=== PATIENT | male | born 1950 | race Caucasian/White ===

== ENCOUNTER → 2016-04-03 | Outpatient (CLI) | payer OTHER | LOC: BHFA 14:00 | PROVIDERS: ATTEND Internal Medicine Cardiovascular Disease | DX: I63.9 Cerebral infarction, unspecified (principal) ==

== ENCOUNTER → 2016-04-13 | Outpatient (CLI) | payer OTHER | LOC: BHFA 13:00 | PROVIDERS: ATTEND Internal Medicine Cardiovascular Disease | DX: I50.9 Heart failure, unspecified (principal); I50.21 Acute systolic (congestive) heart failure; G47.30 Sleep apnea, unspecified; G47.31 Primary central sleep apnea; N18.9 Chronic kidney disease, unspecified | CPT/HCPCS: 78452; 93017; A9500; J2785; 84481-90 ==

== ENCOUNTER 2016-04-20 07:32 | Observation (INO) | payer OTHER ==
[2016-04-20] MEDS ORDERED: diphenhydrAMINE 25 MG CAP PO ONE ×2 (07:40→08:28)
[2016-04-20] MEDS ORDERED: FAMOTIDINE 20 MG TAB PO ONE (07:40)
[2016-04-20] MEDS ORDERED: DIAZEPAM 5 MG TAB PO ONE (07:40)
[2016-04-20] MEDS ORDERED: NS 1,000 ML IV ONE (07:40)
[2016-04-20] MEDS ORDERED: ASPIRIN EC 325 MG TAB PO ONE ×2 (07:40→08:28)
--- NOTE | 2016-04-20 08:25 | CPEKG ---
Heart Rate: 75 RR Interval: 800 P-R Interval: 200 QRSD Interval: 116 QT Interval: 388 QTC Interval: 434 P [place]: 63 QRS [place]: -2 T Wave [place]: 190 EKG Severity - ABNORMAL ECG - EKG Impression: SINUS RHYTHM BORDERLINE FIRST DEGREE AV BLOCK EKG Impression: NONSPECIFIC INTRAVENTRICULAR CONDUCTION DELAY EKG Impression: BORDERLINE ST DEPRESSION, ANTEROLATERAL LEADS Electronically Signed By: Horacio Ferrara 20-Apr-2016 19:24:40
[2016-04-20] MEDS ORDERED: FAMOTIDINE 20 MG TAB ONE (08:28)
[2016-04-20] MEDS ORDERED: DIAZEPAM 5 MG TAB ONE (08:28)
[2016-04-20 08:47] LABS: % IMMATURE GRANULYOCYTES 0.5 % (0.0-1.1); ABSOLUTE IMMATURE GRANULOCYTES 0.04 10^3/uL (0.00-0.10); ADD DIFF? NO; ADD MORPH? NO; ADD SCAN? NO; ATYPICAL LYMPHOCYTE FLAG 0 (0-99); FRAGMENT RBC FLAG 0 (0-99); HEMATOCRIT 52.8 % (40.0-51.0); HEMOGLOBIN 17.8 g/dL (13.7-17.5); LEFT SHIFT FLG 0 (0-99); LIPEMIA HEMOLYSIS FLAG 80 (0-99); MEAN CELL HEMOGLOBIN 32.5 pg (27.9-34.1); MEAN CELL HEMOGLOBIN CONCENTR. 33.7 g/dL (32.4-36.7); MEAN CELL VOLUME 96.5 fL (81.5-99.8); MEAN PLATELET VOLUME 9.9 fL (8.7-11.7); PLATELET CLUMPS FLAG 10 (0-99); PLATELET COUNT 273 10^3/uL (150-400); RED BLOOD CELL COUNT 5.47 10^6/uL (4.40-6.38); RED CELL DISTRIBUTION WIDTH 13.6 % (11.5-15.2)
[2016-04-20] MEDS ORDERED: fentaNYL 100 MCG/2 ML INJ ONE (08:55)
[2016-04-20] MEDS ORDERED: LIDOCAINE 1% 30 ML SDV ONE (08:55)
[2016-04-20] MEDS ORDERED: IOPAMIDOL (ISOVUE-370) 150 ML BTL IV ONE (08:56)
[2016-04-20] MEDS ORDERED: MIDAZOLAM 2 MG/2 ML VIAL ONE ×2 (08:56)
[2016-04-20 09:07] LABS: ANION GAP 11 mEq/L (8-16); CALCIUM 8.9 mg/dL (8.5-10.4); CARBON DIOXIDE 21 mEq/l (22-31); CHLORIDE 114 mEq/L (97-110); CHOLESTEROL 192 mg/dL (140-220); CHOLESTEROL/HDL RATIO 4.68 RATIO (1.00-4.97); CREATININE 1.5 mg/dL (0.7-1.3); GLOMERULAR FILTRATION RATE 47; GLUCOSE 75 mg/dL (70-100); HIGH DENSITY LIPOPROTEIN 41 mg/dL (40-65); LDL/HDL RATIO 3.07 RATIO (1.00-3.64); LOW DENSITY LIPOPROTEIN 126 mg/dL (80-100); MAGNESIUM 2.1 mg/dL (1.6-2.3); NON-HIGH DENSITY LIPOPROTEIN 151 mg/dL (90-129); POTASSIUM 4.4 mEq/L (3.5-5.2); SODIUM 146 mEq/L (134-144); TRIGLYCERIDE 126 mg/dL (40-150); VERY LOW DENSITY LIPOPROTEINS 25 mg/dL (8-25)
[2016-04-20 09:10] LABS: INR 1.06 (0.83-1.16); PROTIME(PATIENT) 13.7 SEC (12.0-15.0)
[2016-04-20] MEDS ORDERED: OXYCODONE/APAP 5/325 TAB PO PRN (12:21)
[2016-04-20] MEDS ORDERED: NITROGLYCERIN 0.4 MG BTL SL PRN (12:21)
[2016-04-20] MEDS ORDERED: ONDANSETRON 4 MG/2 ML VIAL IVP PRN (12:21)
[2016-04-20] MEDS ORDERED: ATROPINE SULFATE 1 MG/10 ML SYR IVP PRN (12:21)
[2016-04-20] MEDS ORDERED: HYDROCODONE/APAP 5/325 TAB PO PRN (12:21)
--- NOTE | 2016-04-20 14:56 | DX ---
Portable Chest 14:27 p.m. History: Preoperative open heart surgery evaluation Comparison: None Findings: Lungs clear. Heart normal. No mass, adenopathy or pleural effusion. There is mild tortuosit y of the descending thoracic aorta. EKG lead and oxygen tubing overlies the chest. Impression: Normal. No contraindication to open heart surgery identified.
--- NOTE | 2016-04-20 15:39 | US ---
Bilateral Duplex Carotid Sonography Clinical Indications: Preoperative open heart surgery, coronary artery disease, atherosclerotic dise ase Technique: The cervical portions of the carotid and vertebral arteries were imaged and interrogated by color and pulsed Doppler. Spectral analysis was performed. Findings: Right Carotid: The common carotid artery, bifurcation, and origin of the internal and external carot id artery are well imaged. There is a 30% diameter smooth noncalcified stenosis by NASCET criteria as sociated with the right carotid bifurcation. Doppler velocity estimates and color Doppler spectra ar e normal. Peak ICA systolic velocity = 59 cm/sec and diastolic velocity = 27 cm/sec. No evidence of flow-limiting stenosis. No focal ulceration is identified. Left Carotid: The common carotid artery, bifurcation, and origin of the internal and external caroti d artery are well imaged. There is a smooth 0% stenosis by NASCET criteria, partially calcified plaqu e in the carotid bifurcation. Doppler velocity estimates and color Doppler spectra are normal. Peak ICA systolic velocity = 50 to cm/sec and peak diastolic velocity = 22 cm/sec. No evidence of flow-peterson iting stenosis. No focal ulceration is identified.. Vertebral Arteries: Antegrade flow is shown by pulsed Doppler of each vertebral artery. Impression: No evidence of flow-limiting carotid stenosis. Measurement of carotid stenosis is based on velocity parameters that correlate the residual internal carotid diameter with [place] Symptomatic Carotid Endarterectomy Trial (NASCET) based stenosis levels.
[2016-04-20] MEDS ORDERED: TEMAZEPAM 15 MG CAP PO PRN (15:53)
[2016-04-20] MEDS ORDERED: TRIAMCINOLONE 0.5% 15GM CREAM TP PRN (15:53)
[2016-04-20] MEDS ORDERED: CYCLOBENZAPRINE 10 MG TAB PO PRN (15:53)
[2016-04-20] MEDS: CARVEDILOL 3.125 MG TAB PO SCH ×2 (16:40→19:29)
--- NOTE | 2016-04-20 17:50 | GCON ---
[f rep st] CONSULTATION PATIENT NAME: Jennifer Barrett DATE OF : REFERRING PHYSICIAN: The patient was seen at request of Dr. Coello with the patient's permission. IMPRESSION: 1. 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 2. History of asthma. 3. History of central sleep apnea. 4. Migraine cephalgia. RECOMMENDATIONS: This gentleman should undergo coronary artery revascularization. He was offered syed rgery in the morning given his poor LV function and coronary anatomy. However, the patient states th at is not convenient for him. I advised him he is at risk for worsening heart failure and sudden demond th. His overall risk for surgery approaches of 6% to 7%. However, medical therapy is an option but the lesser for long-term survival. The patient has had worsening dyspnea on exertion, shortness of b reath. He was noted on evaluation by Dr. Coello to have severe LV dysfunction with ejection fraction of approximately 23% on echocardiogram. He has mild MR and TR. PA pressures were relatively normal, based on echo. He did have a right heart catheterization, the results are not currently available. He had a Lexiscan which showed some reversible anterior lateral and inferior ischemia. He has no kn own history of myocardial infarction or cardiac injury. PREVIOUS MEDICAL HISTORY: As stated. Surgeries include patellar fracture. MEDICATIONS: Acetaminophen, acetazolamide, allopurinol, Breo Ellipta inhaler, Coreg 6.25 b.i.d., cyc lobenzaprine every other day for sleeping, levothyroxine 75 mcg, lisinopril 10 mg, and temazepam 30 m g a day. ALLERGIES: To penicillin. FAMILY HISTORY: Noncontributory. SOCIAL HISTORY: He lives alone. Does not have a car. He has never been a heavy drinker and does no t currently drink, and he has never smoked. He is currently unemployed. REVIEW OF SYSTEMS: CONSTITUTIONAL: At the present time, he is comfortable lying in bed. He has no significant complaints at present. He just underwent diagnostic left heart catheterization. CARDIAC /RESPIRATORY: He does have occasional chest pain, dyspnea on exertion and some claudication. He has had some shortness of breath with any ambulation or any activity. He denies PND or orthopnea. GI: Negative. MUSCULOSKELETAL: Negative. HEME: He has a history of polycythemia, felt to be due to a ltitude and his lung disease. PHYSICAL EXAMINATION: GENERAL APPEARANCE: A slender middle-aged man lying supine in bed. No appare nt distress. Currently post cath. Awake and alert. HEENT: Poor dentition. NECK: Without bruits. HEART: Rate is regular without murmur. LUNGS: Clear. ABDOMEN: Scaphoid and nontender. No palp able mass or organomegaly. Aorta is not palpable. PERIPHERAL VASCULAR: Femoral pulses are 2+. Ped al pulses are 2+ and symmetrical. No peripheral edema. Please see echo for details, as well as cath. /[id number]/MODL
[2016-04-20] MEDS ORDERED: CARVEDILOL 6.25 MG TAB PO SCH (18:00)
[2016-04-20] MEDS: acetaZOLAMIDE 250 MG TAB PO SCH (18:15)
--- NOTE | 2016-04-20 19:35 | CPIP ---
[f rep st] INVASIVE CARDIAC PROCEDURE DATE OF PROCEDURE: 04/20/2016 PROCEDURE: 1. Coronary angiography. 2. Left ventricular end-diastolic pressure. 3. Right heart catheterization. INDICATION: 1. Cardiomyopathy. 2. High risk stress test with multiple zones of ischemia. 3. Class III dyspnea on exertion concerning for anginal equivalent. ACCESS: The patient was prepped and draped in sterile fashion. 1% lidocaine was used to anesthetize the right inguinal region. A 6-Colombian introducer sheath was placed selectively into the right commo n femoral artery via modified Seldinger technique. A 7-Colombian introducer sheath was placed selective ly into the left common femoral vein via modified Seldinger technique. CORONARY ANGIOGRAPHY: A 6-Colombian JL4 was advanced to the left main coronary artery and images obtain ed. The left main coronary artery bifurcated into an LAD and circumflex coronary arteries. The left main coronary artery had a distal 40-50% stenosis present. The left anterior descending coronary ar shadia is diffusely diseased. In the mid-vessel, there was a single discrete 70% stenosis present and in the distal vessel there was a single discrete 75% stenosis present. The first diagonal artery is a ztssp-dq-[id number]-size vessel. The first diagonal artery had a proximal 99% stenosis present. The circumflex coronary artery is nondominant. The circumflex coronary artery had an ostial 75% stenosi s present. In the mid-vessel, there was a long segmental 50-60% stenosis present. A 6-Colombian JR4 wa s advanced to the right coronary artery and images obtained. The right coronary artery is dominant. The right coronary artery is large. The right coronary artery was occluded in the proximal segment. The distal vessels filled via collaterals from the left. Left ventricular end-diastolic pressure: A 6-Colombian pigtail catheter was advanced into the left ventricle and left ventricular end-diastolic pressure was obtained. The left ventricle end-diastolic pressure was 32 mmHg. Left ventriculography was not performed in an effort to spare contrast in this patient with renal insufficiency. Right he art catheterization: Right heart catheter was advanced to the right atrium and pressure obtained. T he right atrial pressure was 7 mmHg. The catheter was then advanced to the right ventricle and press ure obtained. The right ventricular pressure was 38/7 mmHg. The catheter was then advanced to the p ulmonary artery pressure obtained. The pulmonary artery pressure was 37/16 mmHg with a mean pulmonar y artery pressure 26 mmHg. The pulmonary capillary wedge pressure was 20 mmHg. The transpulmonary g radient was 6. Cardiac output: 4.92. Cardiac index: 2.79. COMPLICATIONS: None. CONCLUSIONS: 1. Three-vessel coronary artery disease. 2. Mild pulmonary hypertension with a mean pulmonary artery pressure of 26 mmHg. The transpulmonary gradient of 6 mmHg, indicating the pulmonary hypertension is secondary to left ventricular dysfuncti on. 3. Elevated pulmonary capillary wedge pressure: 20 mmHg. 4. The plan is for surgical evaluation. /[id number]/MODL
[2016-04-21] MEDS ORDERED: LEVOTHYROXINE 75 MCG TAB PO SCH (06:00)
[2016-04-21 08:12] VITALS: BP 95/62; PULSE 77; RESP 17; TEMP 97.6; O2SAT 98
[2016-04-21] MEDS: CARVEDILOL 3.125 MG TAB PO SCH (08:49)
[2016-04-21] MEDS: acetaZOLAMIDE 250 MG TAB PO SCH (08:52)
[2016-04-21] MEDS ORDERED: LISINOPRIL 10 MG TAB PO SCH (09:00)
[2016-04-21] MEDS ORDERED: ALLOPURINOL 100 MG TAB PO SCH (09:00)
[2016-04-21] MEDS ORDERED: Fluticasone/Vilanterol [Breo Ellipta 100-25 Mcg Inh] 1 PUFFS IH SCH (09:00)
[2016-04-21] MEDS ORDERED: ASPIRIN 81 MG CHEWABLE TAB PO SCH (10:00)
[2016-04-21] MEDS ORDERED: ATORVASTATIN CALCIUM 10 MG TAB PO SCH (10:00)
--- NOTE | 2016-04-21 12:23 | GDS ---
[f rep st] DISCHARGE SUMMARY DISCHARGE DIAGNOSES: 1. Systolic congestive heart failure with an ejection fraction of 23% seen on recent echo on 04/03/2016. 2. Chronic renal insufficiency with a serum creatinine in the 1.6 range. 3. History of central sleep apnea. 4. History of chronic migraines. 5. History of polycythemia. 6. Abnormal nuclear stress test from 04/13/2016, which showed very large reversible anterolateral and inferior ischemia. PROCEDURES: 1. 04/20/2016 left heart catheterization which showed left main with 40% to 50 % stenosis, mid vessel LAD single discrete 70% stenosis and diffuse disease as well throughout the vessel. Distal vessel has 75% stenosis. First diagonal shows 99% proximal stenosis. Circumflex has ostial 75% stenosis. In the mid vessel, there is 50% to 60% long segmental stenosis. Right coronary artery was occluded at the proximal segment and was filled with collateral from the left. LVEDP was elevated at 32 mm Hg. 2. Right heart catheterization with RA pressure of 7, RV pressure of 38/7, pulmonary artery pressure of 37/16 with a mean pulmonary artery pressure of 26, pulmonary capillary wedge pressure of 20, transpulmonary gradient of 6, cardiac output of 4.92, cardiac index of 2.79. PHYSICIANS: Dr. Plunkett. Outpatient heart failure erp business analyst is Dr. Coello. CONSULTATIONS: Dr. Polk. BRIEF HISTORY: Please see dictated H and P for complete details. In brief, the patient is a 65-year-old male with chronic migraines, polycythemia, and chronic renal insufficiency, who was referred to Dr. Coello due to echo showing EF of 23% with a reduced RV ejection fraction, mild MR and TR. He proceeded to Lexiscan stress testing, which showed a very large reversible defect involving the anterolateral and inferior nolasco. EF was 37%. He had dyspnea as well as some vague chest pain. He proceeded to left heart catheterization, with results described above. He has been offered coronary artery bypass grafting. HOSPITAL COURSE: 1. Severe CAD. He has three-vessel CAD and has been offered coronary artery bypass grafting. He would to like to defer surgery until after the winter season due to his need to use a support services rep. This will need to be discussed with Dr. Coello in the outpatient setting. He was at this point scheduled to have surgery on but surgery date is currently on hold. 2. Dyslipidemia. His LDL on day of left heart catheterization was 126. He is being started on atorvastatin 110 mg daily. He will need followup labs in 6 weeks. 3. Chronic kidney disease. His creatinine was 1.5 on day of left heart catheterization. 4. Systolic CHF. He has NYHA functional class 3 symptoms. He appears euvolemic and has no crackles on lung exam. RESULTS PENDING: None. DISCHARGE PHYSICAL EXAM: VITAL SIGNS: Blood pressure 95/62, heart rate 77, respirations 17, O2 saturation 98% on room air. GENERAL: He is a pleasant male in no apparent distress. EYES: PERRL. HEART: Regular rate and rhythm. LUNGS: Clear. ABDOMEN: Right groin site without erythema or bruit auscultated. EXTREMITIES: He has 2+ PT and DP pulses bilaterally. ACTIVITY: Groin precautions were reviewed. DISCHARGE MEDICATIONS: Please see medication reconciliation for complete details. His new medications are aspirin 81 mg p.o. daily and atorvastatin 10 mg p.o. daily. He is being continued on all his home medications, which include triamcinolone, Flexeril, Tylenol No. 3, temazepam, carvedilol, lisinopril, levothyroxine, acetazolamide, allopurinol, and Breo Ellipta. FOLLOWUP INSTRUCTIONS: 1. Follow up with Dr. Polk in the outpatient setting. 2. Follow up with Dr. Coello in 1-2 weeks' time. 3. Follow groin instructions as provided on discharge. /[id number]/MODL MTDD
== END 2016-04-21 12:15 | disposition home or self-care (01) ==
LOC: FCATH 07:32 → F2W 13:02
PROVIDERS: ADMIT Internal Medicine Cardiovascular Disease; ATTEND Internal Medicine Cardiovascular Disease
PROC: 4A023N8 Measurement of Cardiac Sampling and Pressure, Bilateral, Percutaneous Approach (ICD-10-PCS; principal; 2016-04-20)
PROC: B2151ZZ Fluoroscopy of Left Heart using Low Osmolar Contrast (ICD-10-PCS; 2016-04-20)
PROC: B2111ZZ Fluoroscopy of Multiple Coronary Arteries using Low Osmolar Contrast (ICD-10-PCS; 2016-04-20)
DX: I50.21 Acute systolic (congestive) heart failure (principal); I25.5 Ischemic cardiomyopathy; I25.10 Atherosclerotic heart disease of native coronary artery without angina pectoris; I27.2 Other secondary pulmonary hypertension; R53.83 Other fatigue; R06.02 Shortness of breath; N18.9 Chronic kidney disease, unspecified; G47.31 Primary central sleep apnea; G43.909 Migraine, unspecified, not intractable, without status migrainosus; D75.1 Secondary polycythemia; R94.39 Abnormal result of other cardiovascular function study; E78.5 Hyperlipidemia, unspecified; E03.9 Hypothyroidism, unspecified; M10.9 Gout, unspecified; J45.909 Unspecified asthma, uncomplicated; Z87.442 Personal history of urinary calculi; Z88.0 Allergy status to penicillin
CPT/HCPCS: 71010; 93005; 93458; 93880; J1644; J2250; J3010; Q9967

== ENCOUNTER 2016-04-26 07:15 | Inpatient (IN) | payer OTHER ==
[2016-05-22 12:13] LABS: % IMMATURE GRANULYOCYTES 0.5 % (0.0-1.1); ABSOLUTE IMMATURE GRANULOCYTES 0.05 10^3/uL (0.00-0.10); ADD DIFF? NO; ADD MORPH? NO; ADD SCAN? NO; ATYPICAL LYMPHOCYTE FLAG 0 (0-99); FRAGMENT RBC FLAG 0 (0-99); HEMATOCRIT 48.4 % (40.0-51.0); LEFT SHIFT FLG 0 (0-99); LIPEMIA HEMOLYSIS FLAG 80 (0-99); MEAN CELL HEMOGLOBIN 32.7 pg (27.9-34.1); MEAN CELL HEMOGLOBIN CONCENTR. 33.1 g/dL (32.4-36.7); MEAN CELL VOLUME 98.8 fL (81.5-99.8); MEAN PLATELET VOLUME 9.7 fL (8.7-11.7); PLATELET CLUMPS FLAG 0 (0-99); PLATELET COUNT 242 10^3/uL (150-400); RED CELL DISTRIBUTION WIDTH 14.4 % (11.5-15.2)
[2016-05-22 12:27] LABS: ANION GAP 12 mEq/L (8-16); CALCIUM 9.4 mg/dL (8.5-10.4); CARBON DIOXIDE 19 mEq/l (22-31); CHLORIDE 114 mEq/L (97-110); CREATININE 1.5 mg/dL (0.7-1.3); GLOMERULAR FILTRATION RATE 47; GLUCOSE 81 mg/dL (70-100); POTASSIUM 4.1 mEq/L (3.5-5.2); SODIUM 145 mEq/L (134-144)
[2016-05-22 13:57] LABS: HEMOGLOBIN A1C 5.1 % (4.0-6.0)
[2016-05-24] MEDS ORDERED: MANNITOL 25% 12.5 GM/50 ML VIAL IV ONE (06:00)
[2016-05-24] MEDS ORDERED: PHENYLEPHRINE HCL 50 MG in NS 250 ML IV ONE (06:00)
[2016-05-24] MEDS ORDERED: VERAPAMIL 5 MG, NITROGLYCERIN 2.5 MG, HEPARIN 500 UNIT, SODIUM BICARBONATE 0.2 MEQ in L... MISC ONE (06:00)
[2016-05-24] MEDS ORDERED: INSULIN REGULAR HUMAN 100 UNIT in NS 100 ML IV ONE (06:00)
[2016-05-24] MEDS ORDERED: VANCOMYCIN PHARMACY TO DOSE MISC ONE (06:00)
[2016-05-24] MEDS ORDERED: niCARdipine/NACL 200 ML IV SCH (06:00)
[2016-05-24] MEDS ORDERED: LIDOCAINE 1% 5 ML SDV ID PRN ×2 (06:00→06:48)
[2016-05-24] MEDS ORDERED: VANCOMYCIN HCL/NORMAL SALINE 250 ML IV ONE (06:00)
[2016-05-24] MEDS ORDERED: NS 1,000 ML IV ONE (06:00)
[2016-05-24] MEDS ORDERED: SODIUM BICARBONATE 20 MEQ, LIDOCAINE 1% 10 ML in NORMOSOL-R 1,000 ML MISC ONE (06:00)
[2016-05-24] MEDS ORDERED: AMINOCAPROIC ACID 5 GM/20 ML VIAL IV ONE (06:00)
[2016-05-24] MEDS ORDERED: MUPIROCIN 2% 22 GM OINT NS ONE (06:00)
[2016-05-24] MEDS ORDERED: DOBUTamine/DEXTROSE 250 ML IV SCH ×3 (06:00→14:30)
[2016-05-24] MEDS ORDERED: CHLORHEXIDINE GLUC HIBICLENS 118 ML BTL TP SCH (06:00)
[2016-05-24] MEDS ORDERED: CITRATE DEXTROSE SOLN 500 ML BAG MISC ONE (06:00)
[2016-05-24] MEDS ORDERED: NOREPINEPHRINE BITARTRATE 16 MG in NS 250 ML IV ONE (06:00)
[2016-05-24] MEDS ORDERED: LIDOCAINE 1% 5 ML SDV ONE (06:14)
[2016-05-24] MEDS ORDERED: POTASSIUM Cl (KCl) 20 MEQ/50 ML BAG IV ONE ×2 (06:24→21:00)
[2016-05-24] MEDS ORDERED: CALCIUM CHLORIDE 1 GM/10 ML INJ ONE ×3 (06:24→21:03)
[2016-05-24] MEDS ORDERED: ALBUMIN 5% 250 ML BOTTLE IV ONE ×2 (06:24→21:02)
[2016-05-24] MEDS ORDERED: AMINOCAPROIC ACID 5 GM/20 ML VIAL ONE ×3 (06:24→21:03)
[2016-05-24] MEDS ORDERED: PROTAMINE SULFATE 50 MG/5 ML VIAL IVP ONE ×2 (06:24→21:00)
[2016-05-24] MEDS ORDERED: MILRINONE/DEXTROSE/100 ML BAG IV ONE ×2 (06:24→21:00)
[2016-05-24] MEDS ORDERED: ADENOSINE 6 MG/2 ML VIAL ONE ×2 (06:25→21:01)
[2016-05-24] MEDS ORDERED: methylPREDNISolone SOD SUCC 1 GM/8 ML VIAL ONE ×2 (06:25→21:04)
[2016-05-24] MEDS ORDERED: AMIODARONE HCL 150 MG/3 ML VIAL ONE ×3 (06:25→21:04)
[2016-05-24] MEDS ORDERED: niCARdipine/NACL/200 ML BAG IV ONE ×2 (06:25→21:01)
[2016-05-24] MEDS ORDERED: MAGNESIUM SULFATE 1 GM/2 ML VIAL ONE ×2 (06:25→21:04)
[2016-05-24] MEDS ORDERED: LIDOCAINE 2% 100 MG/5 ML SYR IVP ONE ×2 (06:25→21:03)
[2016-05-24] MEDS ORDERED: DOPamine/DEXTROSE/250 ML BAG IV ONE ×2 (06:25→21:00)
[2016-05-24] MEDS ORDERED: CITRATE DEXTROSE SOLN 500 ML BAG ONE ×2 (06:25→21:03)
[2016-05-24] MEDS ORDERED: NA BICARBONATE 50 MEQ/50 ML VIAL ONE ×2 (06:25→21:00)
[2016-05-24] MEDS ORDERED: ceFAZolin 1 GM VIAL ONE ×2 (06:26→21:02)
[2016-05-24] MEDS ORDERED: HEPARIN 10,000 UNIT/10 ML MDV ONE ×3 (06:26→21:04)
[2016-05-24] MEDS ORDERED: LR 1,000 ML IV ONE (06:48)
--- NOTE | 2016-05-24 06:49 | PDGENHP ---
History and Physical - Chief Complaint Preop CABG - History of Present Illness 65 yo male with severe multivessel CAD, chronic CHF, and stable NYHA class III symptoms, offered surgical revascularization one month ago, but declined due to anticipated restrictions and needing to get affairs in order. No interim admissions, changes in medications, weight gain, leg swelling, palpitations, or change in functional limitations. Admits to some exertional chest "twinges" resolving with rest. Still able to comfortably walk "about an 1/8 mile", feeling limited by onset of "thigh burning" moreso than SOB. History Information - Allergies/Home Medication List Allergies/Adverse Reactions: Penicillins Allergy (Verified 05/01/16 16:12) Unknown Home Medications: Acetaminophen/Codeine 300/30Mg [Tylenol #3 (*)] 1 each PO PRN PRN 04/20/16 [ Last Taken 05/22/16] Allopurinol [Allopurinol 100 MG (*)] 200 mg PO DAILY 04/20/16 [Last Taken ] Carvedilol [Coreg (*)] 6.25 mg PO BIDMEAL 04/20/16 [Last Taken 05/24/16] Cyclobenzaprine [Flexeril 10 MG (*)] 10 mg PO PRN PRN 04/20/16 [Last Taken 05/17] Fluticasone/Vilanterol [Breo Ellipta 100-25 Mcg INH] 1 puffs IH DAILY 04/20/16 [ Last Taken 05/24/16] Levothyroxine [Synthroid 75 mcg (*)] 75 mcg PO DAILY06 04/20/16 [Last Taken 05/11] Lisinopril [Zestril 10 mg (*)] 10 mg PO DAILY 04/20/16 [Last Taken 05/24/16] Temazepam [Restoril 15 MG (*)] 30 mg PO HSPRN PRN 04/20/16 [Last Taken 05/22/16] Triamcinolone Acetonide 15 gm TP PRN PRN 04/20/16 [Last Taken Unknown] acetaZOLAMIDE [Diamox] 125 mg PO QAM 04/20/16 [Last Taken 05/24/16] I have personally reviewed and updated: medical history, social history, surgical history - Past Medical History coronary artery disease, GERD, hyperlipidemia (LDL 126, HDL 41) Additional medical history: Ischemic cardiomyopathy w systolic and diastolic CHF - LVEF ~25%, LVEDP 32. RAD. Central and obstructive sleep apnea with mild PHTN, polycythemia and tension headaches - BiPAP w PSV recommended; currently using CPAP, left mask at home. CKD3 w baseline Cr 1.5-1.6. Chronic left low leg dysesthesia - "TIA vs MS"; neurologist "non-commital" about diagnosis. Gout. Hypothyroidism. - Surgical History Reports: no pertinent surgical hx - Family History Positive for: CAD (father) - Social History Smoking Status: Former smoker Review of Systems Constitutional: Reports: no symptoms EENMT: Reports: other (glasses; long newberry since mid 1970s, does not want it shaved) Physical Exam Constitutional: no apparent distress Eyes: anicteric sclera, other (PER) Ears, Nose, Mouth, Throat: moist mucous membranes Cardiovascular: regular rate and rhythym Peripheral Pulses: 2+: femoral (R), femoral (L), dorsalis-pedis (R), dorsalis- pedis (L) Respiratory: no respiratory distress, clear to auscultation Gastrointestinal: soft, non-tender abdomen Skin: warm, other (hairless, thin and shiny skin bilat low legs sugg PAD) Lab Data & Imaging Review 05/22/16 11:46 05/22/16 11:46 WBC 9.56 10^3/uL (3.80-9.50) H 05/22/16 11:46 RBC 4.90 10^6/uL (4.40-6.38) 05/22/16 11:46 Hgb 16.0 g/dL (13.7-17.5) 05/22/16 11:46 Hct 48.4 % (40.0-51.0) 05/22/16 11:46 MCV 98.8 fL (81.5-99.8) 05/22/16 11:46 MCH 32.7 pg (27.9-34.1) 05/22/16 11:46 MCHC 33.1 g/dL (32.4-36.7) 05/22/16 11:46 RDW 14.4 % (11.5-15.2) 05/22/16 11:46 Plt Count 242 10^3/uL (150-400) 05/22/16 11:46 MPV 9.7 fL (8.7-11.7) 05/22/16 11:46 Neut % (Auto) 72.3 % (39.3-74.2) 05/22/16 11:46 Lymph % (Auto) 13.9 % (15.0-45.0) L 05/22/16 11:46 [place] % (Auto) 9.6 % (4.5-13.0) 05/22/16 11:46 Eos % (Auto) 2.8 % (0.6-7.6) 05/22/16 11:46 Baso % (Auto) 0.9 % (0.3-1.7) 05/22/16 11:46 Nucleat RBC Rel Count 0.0 % (0.0-0.2) 05/22/16 11:46 Absolute Neuts (auto) 6.90 10^3/uL (1.70-6.50) H 05/22/16 11:46 Absolute Lymphs (auto) 1.33 10^3/uL (1.00-3.00) 05/22/16 11:46 Absolute Monos (auto) 0.92 10^3/uL (0.30-0.80) H 05/22/16 11:46 Absolute Eos (auto) 0.27 10^3/uL (0.03-0.40) 05/22/16 11:46 Absolute Basos (auto) 0.09 10^3/uL (0.02-0.10) 05/22/16 11:46 Absolute Nucleated RBC 0.00 10^3/uL (0-0.01) 05/22/16 11:46 Immature Gran % 0.5 % (0.0-1.1) 05/22/16 11:46 Immature Gran # 0.05 10^3/uL (0.00-0.10) 05/22/16 11:46 Sodium 145 mEq/L (134-144) H 05/22/16 11:46 Potassium 4.1 mEq/L (3.5-5.2) 05/22/16 11:46 Chloride 114 mEq/L (97-110) H 05/22/16 11:46 Carbon Dioxide 19 mEq/l (22-31) L 05/22/16 11:46 Anion Gap 12 mEq/L (8-16) 05/22/16 11:46 BUN 20 mg/dL (7-23) 05/22/16 11:46 Creatinine 1.5 mg/dL (0.7-1.3) H 05/22/16 11:46 Estimated GFR 47 05/22/16 11:46 Glucose 81 mg/dL (70-100) 05/22/16 11:46 Hemoglobin A1c 5.1 % (4.0-6.0) 05/22/16 11:47 Estim Average Glucose 100 mg/dL (68-126) 05/22/16 11:47 Calcium 9.4 mg/dL (8.5-10.4) 05/22/16 11:46 Patient ABO/Rh B POSITIVE 05/22/16 11:46 Antibody Screen NEGATIVE 05/22/16 11:46 Visualized and Interpreted Chest x-ray results: Yes Chest X-Ray results: normal Visualized and Interpreted EKG results: Yes EKG Interpretation: Positive for: normal sinsus rhythm (70s), other (1st degree AVB, IVCD), ST depression (anterolat leads) Assessment & Plan Assessment: Sx severe CAD ISCM with severe LVSD and chronic class III systolic and diastolic CHF CKD3 Chronic hypoxemic respiratory failure Probable peripheral arterial insufficiency, aortoiliac disease vs LCOS Plan: Multivessel CABG Consents per Dr Polk
[2016-05-24] MEDS ORDERED: MIDAZOLAM 2 MG/2 ML VIAL ONE (06:54)
[2016-05-24] MEDS ORDERED: ROCURONIUM 100 MG/10 ML VIAL ONE (06:58)
[2016-05-24] MEDS ORDERED: PAPAVERINE HCL 60 MG/2 ML SDV ONE (06:58)
[2016-05-24] MEDS ORDERED: VERAPAMIL 5 MG/2 ML VIAL ONE (06:58)
[2016-05-24] MEDS ORDERED: SKIN ADHESIVE (DERMABOND) 1 EACH TP ONE (06:58)
[2016-05-24] MEDS ORDERED: PHENYLEPHRINE 10 MG/ML SDV ONE (06:59)
[2016-05-24] MEDS ORDERED: LIDOCAINE 2% 5 ML SDV ONE (06:59)
[2016-05-24] MEDS ORDERED: PROPOFOL 200 MG/20 ML VIAL ONE (07:00)
[2016-05-24] MEDS ORDERED: fentaNYL 250 MCG/5 ML INJ ONE ×2 (07:00)
[2016-05-24] MEDS ORDERED: NITROGLYCERIN 50 MG/10 ML SDV IV ONE (10:36)
[2016-05-24] MEDS ORDERED: SUGAMMADEX SODIUM 200 MG/2 ML VIAL IVP ONE (11:01)
[2016-05-24] MEDS ORDERED: PROPOFOL/EMULSION 500 MG/50 ML BOTTLE IV ONE (11:22)
[2016-05-24] MEDS ORDERED: ONDANSETRON 4 MG/2 ML VIAL IVP PRN (11:26)
[2016-05-24] MEDS ORDERED: ACETAMINOPHEN 650 MG SUPP PR PRN (11:26)
[2016-05-24] MEDS ORDERED: D50W 25 GM/50 ML SYR IVP PRN (11:26)
[2016-05-24] MEDS ORDERED: POLYETHYLENE GLYCOL 3350 17 GM PKT PO PRN (11:26)
[2016-05-24] MEDS ORDERED: MEPERIDINE 25 MG/ML SYR IVP PRN (11:26)
[2016-05-24] MEDS ORDERED: BISACODYL 10 MG SUPP PR PRN (11:26)
[2016-05-24] MEDS ORDERED: MAGNESIUM SULF 2 GM/WATER 50 ML IV ONE (11:26)
[2016-05-24] MEDS ORDERED: SODIUM CL NASAL 45 ML BTL EACHNARE PRN (11:26)
[2016-05-24] MEDS ORDERED: METOCLOPRAMIDE 10 MG/2 ML VIAL IVP PRN (11:26)
[2016-05-24] MEDS ORDERED: MAGNESIUM HYDROXIDE 30 ML UDCUP PO PRN (11:26)
[2016-05-24] MEDS ORDERED: CEPACOL LOZENGE PO PRN (11:26)
[2016-05-24] MEDS ORDERED: PANTOPRAZOLE SODIUM 40 MG in NS 100 ML IV ONE (11:26)
[2016-05-24] MEDS ORDERED: LACTULOSE 20 GM/30 ML UDCUP PO PRN (11:26)
[2016-05-24] MEDS ORDERED: HYDROCODONE/APAP 5/325 TAB PO PRN (11:26)
[2016-05-24] MEDS ORDERED: ACETAMINOPHEN 325 MG TAB PO PRN (11:26)
[2016-05-24] MEDS ORDERED: NS 1,000 ML IV SCH (11:30)
[2016-05-24] MEDS ORDERED: INSULIN REGULAR HUMAN 100 UNIT in NS 100 ML IV SCH (11:30)
[2016-05-24] MEDS ORDERED: IPRATROPIUM/ALBUTEROL 3 ML DEYVIAL IH PRN (11:40)
--- NOTE | 2016-05-24 12:18 | POSTOPPROG ---
Post Op Note Date of Operation: 05/24/16 Surgeon: Gomez Polk Telephone Appointment Clerk: Inocencio Anesthesiologist: Herb Anesthesia: GET(General Endotracheal) Pre-op Diagnosis: ASHD, Class 3 CHF, ischemic CM Procedure: CAB 4 tony-lad, svg-dg,Lcx,PDCX lig JOVANNI EVH, IABP Inf/Abcess present in the surg proc area at time of surgery?: No EBL: 50-100 Complications: acute deterioration 1 hr post pump,likely metabolic Drains: Other Specimen(s): 2 heidi
[2016-05-24] MEDS ORDERED: ALBUMIN 5% 500 ML BOTTLE IV ONE (12:40)
[2016-05-24] MEDS ORDERED: DEXMEDETOMIDINE HCL 400 MCG in NS 100 ML IV SCH (13:00)
[2016-05-24 13:03] LABS: CALCULATED OXYGEN SATURATION 91 % (92-95)
[2016-05-24] MEDS ORDERED: SODIUM BICARBONATE 50 MEQ/50 ML SYR ONE ×4 (13:06→22:29)
[2016-05-24] MEDS ORDERED: SODIUM BICARBONATE 50 MEQ/50 ML SYR IVP ONE ×2 (13:30→18:00)
--- NOTE | 2016-05-24 13:31 | CPEKG ---
Heart Rate: 118 RR Interval: 508 P-R Interval: 136 QRSD Interval: 110 QT Interval: 360 QTC Interval: 505 P [place]: 0 QRS [place]: -40 T Wave [place]: 123 EKG Severity - ABNORMAL ECG - EKG Impression: SINUS TACHYCARDIA EKG Impression: INCOMPLETE LEFT BUNDLE BRANCH BLOCK Electronically Signed By: Rikki Key 24-May-2016 15:34:12
--- NOTE | 2016-05-24 13:35 | GOP ---
DATE OF OPERATION: 05/24/2016 SURGEON: Gomez Polk DO SUPPORT SERVICES REP: Lorena Painter PA-C. ANESTHESIA: Bryant Estevez MD. PREOPERATIVE DIAGNOSIS: Arteriosclerotic heart disease with class III congestive heart failure and ischemic dilated cardiomyopathy. POSTOPERATIVE DIAGNOSIS: Arteriosclerotic heart disease with class III congestive heart failure and ischemic dilated cardiomyopathy. PROCEDURE PERFORMED: 1. Coronary artery bypass grafting x4 with left internal mammary artery to the LAD, saphenous vein graft to the diagonal saphenous vein graft to the lateral circumflex, and saphenous vein graft to th e PD circumflex. 2. Endoscopic vein harvest by NOE Cruz. 3. Ligation of left atrial appendage with ligatures. 4. Left common femoral artery intra-aortic balloon pump. FINDINGS: Patient was found to have ischemic dilated cardiomyopathy with severe 3-vessel disease. At time of surgery was found to have a big transmural inferior lateral wall myocardial infarction in the circumflex distribution. Preoperative echo revealed an ejection fraction of 20% to 25% with no significant MR (please see cath report for details). He was consented for surgery, brought to the operating room, monitoring lines were placed by Anesthesia. He was prepped and draped in sterile cl assical manner. A sternotomy was performed. Left internal mammary was harvested as was left greate r saphenous vein endoscopically by NOE Cruz. He was then heparinized after opening the pericard ium. Ventricular function appeared to be about 20% ejection fraction on intraoperative MIL[place]. He was cannulated in standard fashion. Cardiopulmonary bypass was begun. A Cardioplegic arrest was obtai dottie with antegrade cardioplegia, topical hypothermia and systemic cooling. Initially we double liga sheryl a very thin, narrow left atrial appendage with 2 ligature sutures, and then over sewed it with P rolene. We then proceeded with grafting. The lateral circumflex was basically perfused. A large i nfarct to the entire lateral wall and inferior basilar portion, and that distribution was infarcted and a transmural scar. This was a 1.5 mm vessel. The conduits were excellent. It had excellent fl ow in the graft on the left. The proximal anastomosis was then completed to the ascending aorta wit h a cross-clamp on. I then proceeded with grafting the PD branch of the circumflex which was a 1.2 mm vessel that again had excellent flow. This was brought off the ascending aorta in standard fashi on with a cross-clamp on. I then grafted the diagonal which was a diffusely diseased 1.2 mm vessel, again, brought off the ascending aorta with a proximal anastomosis. While rewarming was begun, [place] sanchez was grafted to the distal 3rd of the LAD which is heavily calcified, diffusely diseased vessel. It was a good quality conduit. It was tacked to the epicardium. I then removed the cross-clamp w ith suction on the ascending aortic vent. Spontaneous cardiac activity was noted to resume. He was easily weaned from bypass on low-dose dobutamine. Transesophageal echo was unchanged for ventricul ar function. His cardiac index was greater than 2. After hemostasis was obtained, the pericardium, thymic fat and sternum were all closed in a standard fashion. They then attempted to wean him from the ventilator at which time he became hemodynamically unstable. At which point, he started to res pond to low-dose epinephrine; however, due to his myocardial dysfunction, I placed an intra-aortic b alloon pump through the previously placed left common femoral artery. His blood gas came back with some significant metabolic acidosis, which was reversed. He then hemodynamically stabilized. His O 2 saturation stabilized, and he was transferred to the ICU in critical condition. DESCRIPTION OF PROCEDURE: /[id number]/MODL
[2016-05-24] MEDS ORDERED: ceFAZolin 2 GM/DEXTROSE 100 ML IV SCH (14:00)
[2016-05-24] MEDS: ALBUMIN 5% 250 ML IV PRN ×3 (14:25→20:19)
[2016-05-24] MEDS: POTASSIUM Cl (KCl) 50 ML IV PRN ×2 (14:26→18:00)
[2016-05-24] MEDS ORDERED: PROPOFOL/EMULSION 100 ML IV SCH (14:30)
[2016-05-24] MEDS ORDERED: NOREPINEPHRINE BITARTRATE 16 MG in NS 250 ML IV SCH (14:30)
[2016-05-24] MEDS ORDERED: ceFAZolin 2 GM in D5W 100 ML IV SCH (15:00)
[2016-05-24] MEDS: fentaNYL 100 MCG/2 ML INJ IVP PRN ×2 (15:04→19:45)
--- NOTE | 2016-05-24 17:09 | GCON ---
PULMONARY/CRITICAL CARE CONSULTATION. DATE OF CONSULTATION: 05/24/2016 REFERRING PHYSICIAN: Gomez Polk DO REASON FOR REFERRAL: Evaluation and management of respiratory failure. HISTORY: The patient is a 65-year-old gentleman with chronic congestive heart failure and multivess el coronary artery disease with stable class III heart failure symptoms. He had occasional chest pa in prior to admission. He was admitted for elective coronary artery bypass grafting today, and Dr. Polk performed a 4-vessel CABG with ligation of the left atrial appendage. The intraoperative cour se was unremarkable. A significant anterior scar was noted, and the patient's baseline ejection fra ction is about 20%. Postoperatively, but prior to extubation, the patient became hemodynamically un stable. He responded to low-dose epinephrine, and an intraaortic balloon pump was placed. He had a significant metabolic acidosis, which was then corrected, and the patient was transferred to the in tensive care unit still intubated, and on pressors. He remained sedated on pressors and intubated. PAST MEDICAL HISTORY: 1. Coronary artery disease. 2. Gastroesophageal reflux disease. 3. Ischemic cardiomyopathy with an ejection fraction of about 20%. 4. Central and obstructive sleep apnea. The patient had a home sleep test on 01/18/2016 that demon strated severe sleep apnea with an AHI of 57.2 events/hour, the majority of which were central apnea s (40.7/hour). The patient has been treated with CPAP, but apparently his recent data download show ed severe residual frequency of respiratory events. These settings are apparently auto titrating wi th a pressure range of 9-15 cm H2O. There were plans to put him on BiPAP ASV, but these apparently have not been pursued. 5. Polycythemia. 6. Headaches. 7. Chronic kidney disease, with a baseline creatinine of 1.5. 8. Gout. 9. Hypothyroid. MEDICATIONS: At the time of admission include Flexeril, Tylenol #3, Restoril, Coreg, Zestril, Synth roid, Diamox, allopurinol, Breo Ellipta, Lipitor, and aspirin. ALLERGIES: Penicillin. SOCIAL HISTORY: The patient is a former smoker. FAMILY HISTORY: Positive for coronary artery disease. REVIEW OF SYSTEMS: Unobtainable. PHYSICAL EXAMINATION: GENERAL: The patient is intubated and sedated, with a balloon pump in place. VITAL SIGNS: Blood pressure is 102/60, with a heart rate of 95, patient is afebrile. HEENT: Nor mocephalic and atraumatic, no icterus. NECK: No JVD. Trachea is midline. CHEST: Clear to auscul tation. CARDIAC: Regular rate and rhythm, without murmur. Balloon pump is on 1:2. ABDOMEN: Soft , nontender, bowel sounds are present. EXTREMITIES: No clubbing, cyanosis, or edema. His left low er extremity is wrapped status post vein grafting. LABORATORY DATA: Sodium is 149, with a creatinine of 1.1, glucose is 170. Hemoglobin is 11.9, whit e blood count is 9.6. Arterial blood gas shows a pH of 7.32 with a pO2 of 65, a CO2 of 40, and a bi carbonate of 22. This was done intraoperatively. A chest x-ray shows atelectasis in the bases with an endotracheal tube in the appropriate position. Images are reviewed. ASSESSMENT: 1. Ischemic cardiomyopathy status post coronary artery bypass grafting. 2. Hemodynamic instability. This is improved with pressors, which are currently being titrated ochoa n with good hemodynamic stability and urine output. 3. Anemia. The patient's hemoglobin is 11.9, down from 16.0 preoperatively. This is likely due to dilution, as well as some blood loss. 4. Central sleep apnea. The patient is currently on CPAP at home. His auto titrating CPAP pressur es were recently increased due to persistent respiratory events on a CPAP download. He is being con sidered for ASV, but this is contraindicated due to his low ejection fraction and symptomatic class III congestive heart failure. 5. Respiratory failure. The patient remains intubated postoperatively, primarily due to his hemody namic instability. He may also have a component of chronic obstructive pulmonary disease given his prior history of smoking and his use of Breo. The patient currently has good gas exchange. 6. Possible chronic obstructive pulmonary disease. RECOMMENDATIONS: 1. Continue to wean pressors as tolerated. The patient could potentially be extubated later if he does well on a weaning trial. 2. The patient should be placed on CPAP overnight if he has any signs of sleep apnea. As an outpat ient efforts should be made to optimize his congestive heart failure therapy in order to minimize hi s central sleep apnea. He may also benefit from the use of supplemental oxygen, particularly since [place] a higher [place]. ASV is contraindicated due to his low ejection fraction. 3. Follow hemoglobin to ensure there is not further blood loss. /[id number]/MODL
[2016-05-24] MEDS ORDERED: D5W 1,000 ML IV SCH (18:00)
[2016-05-24] MEDS ORDERED: EPINEPHrine 1 MG/10 ML SYR IVP ONE ×2 (19:00→22:29)
[2016-05-24] MEDS ORDERED: ALBUMIN 5% 250 ML IV ONE (19:00)
[2016-05-24 20:04] LABS: BASE EXCESS -2.7 mEq/L (-2.5-2.5); BICARBONATE 23 mEq/L (22-26); PCO2 41 mmHg (34-38); PO2 56 mmHg (65-75); TCO2 24 mEq/L (23-27)
[2016-05-24 20:06] LABS: MEASURED OXYGEN SATURATION 90 % (92-95)
[2016-05-24] MEDS ORDERED: FAMOTIDINE 20 MG/NACL 50 ML IV SCH (21:00)
[2016-05-24] MEDS ORDERED: CHLORHEXIDINE GLUCONATE 15 ML UDL PO SCH (21:00)
[2016-05-24] MEDS ORDERED: MUPIROCIN 2% 22 GM OINT NS SCH (21:00)
--- NOTE | 2016-05-24 21:14 | EDPHY ---
Inpatient Procedure Narrative: Code blue. I was asked to come and see and evaluate the patient as the patient was a code blue alert. When I arrived the patient was undergoing CPR he is status post coronary artery bypass graft today. The hospitalist was at bedside Dr. Wild. And so was Dr. Coley with surgery. The patient was being bagged by Respiratory was asked to intubate this patient. Procedure: Intubation. The patient was intubated with a glide scope. direct visualization of the cords was visualized with the glide scope. A 7.5 ET tube was passed. The patient was not paralyzed or sedated as he was undergoing CPR and in asystole and unresponsive. Endotracheal tube was confirmed with capnography for change. Bilateral breath sounds. And humidified air in the tube. It was taped at 25 at the lips. No complications. Critical Care: Total Critical Care Time Spent Managing this Patient: 20 Minutes. This time was spent Exclusively with this patient. This Care was exclusive of procedures. The Organ System/life at risk was cardiopulmonary arrest This Patient was in Critical Condition because cardiopulmonary arrest This patient under went multiple rounds of ACLS protocol resuscitation. Dr. Plok was present. Please see his note for full details. I was present for Intubation and brief period of CPR.
--- NOTE | 2016-05-24 21:14 | SOAPPROG ---
SOAP Progress Note Assessment/Plan: Assessment: pt w spontaneous dump then arrested aggressive CPR begun chest opened by me upon arrival R ventricle and R atrium found completely disrupted and from heart as was sternum and manubrium completely dehisced from ribs from compression pronounced by me brother called Plan: 05/24/16 21:10 Objective: Vital Signs Temp Pulse Resp BP Pulse Ox 35.1 C L 101 H 26 H 92/52 L 93 05/24/16 18:00 05/24/16 18:00 05/24/16 18:00 05/24/16 18:00 05/24/16 18:00 Laboratory Results 05/22/16 11:46 05/22/16 11:46 05/23/16 05/24/16 05/25/16 05:59 05:59 05:59 Intake Total 1498 Output Total 2960 Balance -1462 ICD10 Worksheet Patient Problems: Problems Problem Status Onset S/P CABG x 4 Acute ~05/24/16 CAD (coronary artery disease) Chronic Chronic combined systolic and diastolic CHF, NYHA class 3 Chronic Dyslipidemia (high LDL; low HDL) Chronic Ischemic cardiomyopathy Chronic ROLAND on CPAP Chronic Polycythemia Chronic RAD (reactive airway disease) Chronic Severe left ventricular systolic dysfunction Chronic
[2016-05-24 23:08] LABS: CALCULATED OXYGEN SATURATION 96 % (92-95)
[2016-05-24 23:08] LABS: CALCULATED OXYGEN SATURATION 94 % (92-95)
[2016-05-25 00:05] VITALS: O2SAT 90
[2016-05-25 00:06] VITALS: BP 97/75; PULSE 100; RESP 23; TEMP 95.7
--- NOTE | 2016-05-25 00:27 | HOSPPROG ---
Hospitalist Progress Note Assessment/Plan: Jarvis bowman note. Responded to jarvis bowman on this 65 yo male who is s/p CABG by Dr. Polk. He reportedly became a bit hypotensive, then suddenly put out a lot of blood from his chest tube and shortly thereafter became asystolic. Jarvis bowman was called. Upon my arrival, chest compressions were in progress. He received a total of 2 mg IV Epi followed by an amp of sodium bicarb. There was no return of spontaneous circulation. Dr. Polk arrived to the bedside and opened the chest to find complete disruption of the right atrium and right ventricle. Time of 2101. Objective: Vital Signs Temp Pulse Resp BP Pulse Ox 35.4 C L 100 23 H 97/75 L 90 L 05/24/16 21:00 05/24/16 21:00 05/24/16 21:00 05/24/16 21:00 05/24/16 21:00 Laboratory Results 05/22/16 11:46 05/22/16 11:46 05/23/16 05/24/16 05/25/16 05:59 05:59 05:59 Intake Total 2345.1 Output Total 5360 Balance -3014.9 ICD10 Worksheet Patient Problems: Problems Problem Status Onset S/P CABG x 4 Acute ~05/24/16 CAD (coronary artery disease) Chronic Chronic combined systolic and diastolic CHF, NYHA class 3 Chronic Dyslipidemia (high LDL; low HDL) Chronic Ischemic cardiomyopathy Chronic ROLAND on CPAP Chronic Polycythemia Chronic RAD (reactive airway disease) Chronic Severe left ventricular systolic dysfunction Chronic
[2016-05-25] MEDS ORDERED: HEPARIN 5,000 UNIT/0.5 ML SYR SC SCH ×2 (06:00)
[2016-05-25] MEDS ORDERED: ASPIRIN 81 MG CHEWABLE TAB PO SCH (09:00)
[2016-05-25] MEDS ORDERED: CLOPIDOGREL BISULFATE 75 MG TAB PO SCH (09:00)
[2016-05-25] MEDS ORDERED: PANTOPRAZOLE SODIUM 40 MG TAB PO SCH (09:00)
[2016-05-25] MEDS ORDERED: ASPIRIN 81 MG CHEWABLE TAB TUBE PRN (09:00)
[2016-05-26] MEDS ORDERED: LEVOTHYROXINE 75 MCG TAB PO SCH (06:00)
[2016-05-26] MEDS ORDERED: ALLOPURINOL 100 MG TAB PO SCH (09:00)
[2016-05-26] MEDS ORDERED: SENNOSIDES/DOCUSATE SODIUM TAB PO SCH (21:00)
[2016-05-27] MEDS ORDERED: ATORVASTATIN CALCIUM 10 MG TAB PO SCH (09:00)
== END 2016-05-25 00:10 | disposition expired | DRG 235 ==
LOC: F3N 05-24 05:46 → F2N 05-24 07:16
PROVIDERS: ADMIT Thoracic Surgery (Cardiothoracic Vascular Surgery); ATTEND Thoracic Surgery (Cardiothoracic Vascular Surgery)
PROC: 5A1221Z Performance of Cardiac Output, Continuous (ICD-10-PCS; principal; 2016-05-24 07:15)
PROC: 021209W Bypass Coronary Artery, Three Arteries from Aorta with Autologous Venous Tissue, Open Approach (ICD-10-PCS; principal; 2016-05-24 07:15)
PROC: 02L70ZK Occlusion of Left Atrial Appendage, Open Approach (ICD-10-PCS; principal; 2016-05-24 07:15)
PROC: 5A02110 Assistance with Cardiac Output using Balloon Pump, Intermittent (ICD-10-PCS; principal; 2016-05-24 07:15)
PROC: 02100Z9 Bypass Coronary Artery, One Artery from Left Internal Mammary, Open Approach (ICD-10-PCS; principal; 2016-05-24 07:15)
PROC: 5A1935Z Respiratory Ventilation, Less than 24 Consecutive Hours (ICD-10-PCS; 2016-05-25)
PROC: 0BH18EZ Insertion of Endotracheal Airway into Trachea, Via Natural or Artificial Opening Endoscopic (ICD-10-PCS; 2016-05-25)
DX: I25.10 Atherosclerotic heart disease of native coronary artery without angina pectoris (principal); J96.00 Acute respiratory failure, unspecified whether with hypoxia or hypercapnia; E87.2 Acidosis; S26.09XA Other injury of heart with hemopericardium, initial encounter; S29.8XXA Other specified injuries of thorax, initial encounter; T88.8XXA Other specified complications of surgical and medical care, not elsewhere classified, initial encounter; Y84.8 Other medical procedures as the cause of abnormal reaction of the patient, or of later complication, without mention of misadventure at the time of the procedure; Y92.234 Operating room of hospital as the place of occurrence of the external cause; I50.43 Acute on chronic combined systolic (congestive) and diastolic (congestive) heart failure; K21.9 Gastro-esophageal reflux disease without esophagitis; E78.5 Hyperlipidemia, unspecified; G47.33 Obstructive sleep apnea (adult) (pediatric); G47.31 Primary central sleep apnea; N18.3 Chronic kidney disease, stage 3 (moderate); E03.9 Hypothyroidism, unspecified; M10.9 Gout, unspecified; D75.1 Secondary polycythemia; J44.9 Chronic obstructive pulmonary disease, unspecified; I25.2 Old myocardial infarction; Z87.891 Personal history of nicotine dependence
CPT/HCPCS: 82947-QW; C1725; J0153; J0171; J0282; J0690; J1250; J1265; J1644; J1815; J2001; J2150; J2250; J2260; J2370; J2440; J2704; J2720; J2930; J3010; J3370; J7060; P9016; P9041

== ENCOUNTER → 2016-05-22 | Outpatient (CLI) | payer OTHER | LOC: FIMAGING 13:45 | PROVIDERS: ATTEND Thoracic Surgery (Cardiothoracic Vascular Surgery) | DX: Z01.818 Encounter for other preprocedural examination (principal) ==